=== PATIENT | female | born 1945 | race Caucasian/White ===

== ENCOUNTER → 2018-06-10 | Day surgery (SDC) | payer MEDICARE ==
[2018-06-08 11:53] LABS: BASOPHILS # (AUTO) 0.1 (0.0-0.1); BASOPHILS % 0.7 % (0.0-1.0); EOSINOPHILS # (AUTO) 0.2 (0.0-0.4); EOSINOPHILS % 2.4 % (0.0-6.0); HEMATOCRIT 42.5 % (34.2-44.1); HEMOGLOBIN 14.6 g/dL (12.0-16.0); LYMPHOCYTES # (AUTO) 1.9 (1.0-3.2); LYMPHOCYTES % 26.1 % (18.0-39.1); MEAN CORPUSCULAR HEMOGLOBIN 30.5 pg (28-32); MEAN CORPUSCULAR HGB CONC 34.4 g/dL (31-35); MEAN CORPUSCULAR VOLUME 88.9 fL (81-99); MONOCYTES # (AUTO) 0.7 (0.2-0.8); MONOCYTES % 9.1 % (4.4-11.3); NEUTROPHILS # (AUTO) 4.5 (2.1-6.9); NEUTROPHILS % 61.4 % (38.7-80.0); PLATELET COUNT 254 x10e3/uL (140-360); RED BLOOD COUNT 4.78 x10e6/uL (3.6-5.1); RED CELL DISTRIBUTION WIDTH 13.1 % (11.7-14.4)
[2018-06-08 12:07] LABS: ANION GAP 13.9 mmol/L (8-16); CREATININE, SERUM 1.15 mg/dL (0.57-1.11)
[2018-06-08 12:11] LABS: POTASSIUM 2.9 mmol/L (3.5-5.1)
--- NOTE | 2018-06-08 12:21 | Diagnostic Imaging Report ---
EXAM: XR CHEST 2 VIEWS DATE: 06/08/2018 10:59 AM INDICATION: Preoperative, breast mass COMPARISON: None FINDINGS: Lines and Tubes: None Heart and Mediastinum: No acute cardiomediastinal findings. Lungs and Pleura: No significant pleural effusion, pneumothorax, or focal consolidation. Elevation right hemidiaphragm. Bones and Soft Tissues: Density overlying the lower spine likely degenerative. IMPRESSION: 1. No definite acute findings. 2. Density overlying lower spine likely degenerative. Given history, however, radiographic follow-up recommended. Signed by: Dr. Peng Lzaaro MD on 06/08/2018 12:18 PM
[~2018-06-10] MED LIST: CARTIA XT240 MG PO; DEXAMETHASONE SOD PHOS INJ 4 MG/ML VIAL ONE; EPHEDRINE SULFATE INJ 50 MG/10 ML SYR ONE; ESTROPIPATE; FENTANYL CITRATE/PF 100MCG/2 ML INJ ONE; LIDOCAINE HCL 1% LOCAL INJ 20 ML VIAL ONE; LIDOCAINE HCL 2% LOCAL INJ 5 ML SDV VIAL INJ ONE; MIDAZOLAM HCL 2 MG/2 ML VIAL ONE; ONDANSETRON HCL INJ 2 MG/ML VIAL ONE; PEPCID PO; PROPOFOL IV EMULSION 10 MG/ML 20 ML VIAL ONE; SEVOFLURANE INHAL SOLN 250 ML PEN BTL ONE; TRIAMTERENE PO; ULTRAM 50MG50 MG PO; Z DILTIAZEM; Z NORTRIPTYLINE PO; Z.0.SINGULAIR10 MG PO; Z.0.SYNTHROID50 MCG PO
--- OUTSIDE RECORDS SUMMARY | 2018-06-10 07:04 | XMS REPORT ---
Author Author [facility] Address Unknown Phone Unavailable Care Team Providers Care Senior Program Analyst Name Role Phone Shanti VARGAS Unavailable Unavailable Problems This patient has no known problems. Allergies, Adverse Reactions, Alerts This patient has no known allergies or adverse reactions. Medications This patient has no known medications. Results Test Description Test Time Test Comments Text Results Atomic Results Result Comments CHEST 2 VIEWS 2018-06-08 12:17:00 [place] [address] Patient Name: WILLIMA MAK MR #: [id number] : 1945 Age/Sex: 72/F Req #: [id number] Adm Physician: Ordered by: HOLLIS VARGAS MD Report #: [id number] Location: OR Room/Bed: Procedure: [id number] DX/CHEST 2 VIEWS Exam Date: 06/08/18 Exam Time: 1150 REPORT STATUS: Signed EXAM: XR CHEST 2 VIEWS DATE: 06/08/2018 10:59 AM INDICATION: Preoperative, breast mass COMPARISON: None FINDINGS: Lines and Tubes: None Heart and Mediastinum: No acute cardiomediastinal findings. Lungs and Pleura: No significant pleural effusion, pneumothorax, or focal consolidation. Elevation right hemidiaphragm. Bones and Soft Tissues: Density overlying the lower spine likely degenerative. IMPRESSION: 1. No definite acute findings. 2. Density overlying lower spine likely degenerative. Given history, however, radiographic follow-up recommended. Signed by: Dr. Peng Aranda MD on 06/08/2018 12:18 PM Dictated By: PENG ARANDA MD 1218 Transcribed By: SHAHBAZ on 06/08/18 1218 COPY TO: HOLLIS VARGAS MD
[2018-06-10 15:40] VITALS: BP 106/58
--- NOTE | 2018-06-11 08:32 | Diagnostic Imaging Report ---
#[id number] - [id number] NEEDLE LOCALIZATION: 06/10/2018 PROCEDURE DESCRIPTION: The patient had a stereotactic biopsy of the right breast, at [facility]. Mammograms show a biopsy marker clip at the lesion location. Preoperative localization was requested. Written informed written consent was obtained from the patient and a formal time out was taken to confirm patient identity and procedure to be perfomed. Using standard sterile technique, 1% lidocaine local anesthesia and mammographic guidance, the biopsy clip was preoperatively localized with a hookwire. A second hookwire was placed in the round mass more posterior and medial to the clip. Final CC and LM mammograms were obtained to document wire location. A sterile bandage was placed over the wire and the patient was transferred from mammography with no immediate complications noted. Correlation is made to exams dated: 03/06/2018 mammogram and 01/27/2017 mammogram - [facility]. IMPRESSION: NEEDLE LOCALIZATION Follow-up with ACR/ACS guidelines. Blake chapa/jorge:06/10/2018 14:14:00 Manager Of Enterprise: Loretta COTTRELL(Mark)(M), [facility] [id number]
--- NOTE | 2018-06-11 08:33 | Diagnostic Imaging Report ---
#[id number] - [id number] SPECIMEN: 06/10/2018 Correlation is made to exams dated: 06/10/2018 localization - [facility], 03/06/2018 mammogram and 01/27/2017 mammogram - [facility]. The specimen contains two hookwires with a mass and a mass/biopsy clip. IMPRESSION: SPECIMEN Follow-up with ACR/ACS guidelines. Blake Castro Jr., D.O. cw/:06/10/2018 14:25:14 Woodenware Assembler: Loretta COTTRELL(R)(M), [facility]
--- NOTE | 2018-07-29 07:48 | Operative Report ---
DATE OF PROCEDURE: June 10, 2018 PREOPERATIVE DIAGNOSIS: Right breast mass times 2. POSTOPERATIVE DIAGNOSIS: Right breast mass times 2. OPERATION PERFORMED: Right partial mastectomy times 2 with needle localization. ANESTHESIA: General. COMPLICATIONS: None. ESTIMATED BLOOD LOSS: Minimal. DESCRIPTION OF PROCEDURE: With the patient lying in bed in the supine position under good general anesthesia, after having undergone needle localization of the 2 masses in question in the right breast, the right breast was prepped with Betadine solution and draped in the usual manner. An incision was made between the 2 needles, and both needles were followed to the area in question and both lesions were removed in their entirety as a single mass and the specimen was sent for pathological examination and a specimen mammography, which confirmed the fact that the areas in question had been removed. The whole area was then thoroughly irrigated. Perfect hemostasis was ascertained. The breast tissue was then reapproximated with interrupted sutures of 2-0 chromic, and the skin was closed with subcuticular 5-0 Vicryl. Benzoin, Steri-Strips and dressings were applied. The sponge, lap and needle count was correct. The patient tolerated the procedure well and returned to the recovery room in stable condition. Job#: [id number]
== END | disposition home or self-care (01) ==
LOC: OR 07:02
PROVIDERS: ATTEND Surgery
DX: N63.0 Unspecified lump in unspecified breast (principal); I12.9 Hypertensive chronic kidney disease with stage 1 through stage 4 chronic kidney disease, or unspecified chronic kidney disease; N18.9 Chronic kidney disease, unspecified; Z01.810 Encounter for preprocedural cardiovascular examination; Z01.812 Encounter for preprocedural laboratory examination; Z01.818 Encounter for other preprocedural examination
CPT/HCPCS: 19281; 19301; 36415 ×2; 71046; 76098; 80048; 84132; 85025; 88307; 93005; C1769; J1100; J2001 ×2; J2250; J2405; J2704